=== PATIENT | female | born 1995 | race African-American/Black ===

== ENCOUNTER 2020-01-01 12:28 | Emergency (ER) | payer SELFPAY ==
[2020-01-01 12:36] VITALS: BP 119/77; PULSE 92; RESP 17; TEMP 36.5; O2SAT 96
--- NOTE | 2020-01-01 12:53 | ED.GENADULT ---
HPI - General Adult General Chief complaint: Unspecified Stated complaint: BILATERAL EYE REDNESS, CRAMPS FOR PAST FEW WEEKS Time Seen by Provider: 01/01/20 12:46 History of Present Illness HPI narrative: 24-year-old female presents to emergency department for multiple complaints. Patient states she has had bilateral red eyes for the past 3 days. And has never had this in the past before. No feeling of a foreign body. No eye injuries. Patient does not wear contacts, only wears glasses. Patient reports he has is also having lower abdominal pain for the past 2 weeks. She states she had vaginal bleeding 2 nights ago after sex. She denies any urinary symptoms. She does not take anything for the pain so far. No current chest pain or shortness of breath. No fever or chills. Her last menstrual period was at the beginning of the month. Related Data Allergies Allergy/AdvReac Type Severity Reaction Status Date / Time No Known Allergies Allergy Unknown Verified 01/01/20 12:41 Review of Systems Review of Systems: Narrative: CONSTITUTIONAL: Denies fever, chills, or sweats. EYES: Denies visual changes. Reports bilateral eye redness and crusty discharge ENT: Denies rhinorrhea, congestion, sore throat, or otalgia. CARDIOVASCULAR: Denies chest pain, palpitations, or edema. RESPIRATORY: Denies cough or dyspnea. GASTROINTESTINAL: Reports abdominal pain, denies nausea, denies vomiting, and denies diarrhea. GENITOURINARY: Denies dysuria or hematuria. Patient reports vaginal bleeding SKIN: Denies rash or itching. MUSCULOSKELETAL: Denies back pain, joint pain, or myalgia. NEUROLOGIC: Denies headache, numbness, dizziness, or weakness. PSYCHIATRIC: Denies anxiety or depression. All systems reviewed & are unremarkable except as noted in HPI and below (ROS) Exam Narrative: Exam Narrative: GENERAL: Well-appearing, well-nourished, and in no acute distress. HEAD: Normocephalic, atraumatic. EYES: PERRLA and EOMI. Mild bilateral eyes injected. No discharge noted ENT: Nares clear, no rhinorrhea or epistaxis. Mucous membranes moist. NECK: Supple. CHEST: Clear to auscultation. No respiratory distress. HEART: Regular rate and rhythm. No murmur heard. Normal peripheral pulses. : light green vaginal discharge. ABDOMEN: Soft, nontender, nondistended, normal active bowel sounds. EXTREMITIES: Normal range of motion. No edema. SKIN: Warm, dry, no rash. NEURO: No focal deficits. Alert and oriented x3. PSYCH: Normal mood and affect. Course Reevaluation(s) Reevaluation #1: [id number] -reevaluated patient, no new complaints. Will treat for vaginitis with Rocephin, azithromycin, Flagyl. Counseled patient to follow-up with [facility] within 1 to 2 weeks. Return to emergency department if symptoms persist, worsen, or other concerns. Vital Signs Vital signs: Vital Signs Temperature 36.5 C 01/01/20 12:36 Pulse Rate 92 01/01/20 12:36 Respiratory Rate 17 01/01/20 12:36 Blood Pressure 119/77 01/01/20 12:36 Pulse Oximetry 96 01/01/20 12:36 Temperature 36.5 C 01/01/20 12:36 Pulse Rate 76 01/01/20 16:03 Respiratory Rate 17 01/01/20 16:03 Blood Pressure 120/76 01/01/20 16:03 Pulse Oximetry 99 01/01/20 16:03 Medical Decision Making Medical Records Medical records reviewed: Yes I reviewed the patient's medical records. Vital Signs Vital Signs: Vital Signs Temperature 36.5 C 01/01/20 12:36 Pulse Rate 92 01/01/20 12:36 Respiratory Rate 17 01/01/20 12:36 Blood Pressure 119/77 01/01/20 12:36 Pulse Oximetry 96 01/01/20 12:36 Temperature 36.5 C 01/01/20 12:36 Pulse Rate 76 01/01/20 16:03 Respiratory Rate 17 01/01/20 16:03 Blood Pressure 120/76 01/01/20 16:03 Pulse Oximetry 99 01/01/20 16:03 Lab Data Lab results reviewed: Yes I reviewed the patient's lab results. Result diagrams: 01/01/20 13:03 01/01/20 13:03 Labs: Lab Results 01/01/20 01/01/20 01/01/20 Range/Un
[2020-01-01] MEDS: ACETAMINOPHEN 325 MG TABLET 650 MG PO (13:00)
[2020-01-01 13:15] LABS: Add Urine Microscopic? YES; Appearance Urine Cloudy (Clear); Bacteria Urine Trace /hpf; Bilirubin Urine Negative (Negative); Blood Urine 2+ (Negative); Color Urine Yellow (Yellow); Glucose Urine UA Negative (Negative); Ketones Urine Negative (Negative); Leukocyte Esterase Ur 3+ LEU/UL (Negative); Mucus Urine Rare /lpf; Nitrate Urine Negative (Negative); Protein Urine Negative (Negative); Specific Grav Ur 1.014 (1.001-1.035); Squamous Epithelial Cell Urine Many /hpf (Few); Urobilinogen Urine Negative mg/dL (<2.0); WBC Urine 0-3 /hpf
[2020-01-01 13:22] LABS: Alanine Aminotransferase 11 U/L (4-35); Albumin Level 4.3 g/dL (3.5-5.1); Alkaline Phosphatase 45 U/L (38-126); Anion Gap 8 mmol/L (8-16); Aspartate Amino Transferase 20 U/L (14-36); Bilirubin,Total 0.5 mg/dL (0.2-1.3); Blood Urea Nitrogen 13 mg/dL (7-17); Carbon Dioxide 25 mmol/L (22-30); Chloride 106 mmol/L (98-107); Estimated CRCL calculation 100 ml/min; Estimated Glomerular Filt Rate > 60; Glucose 87 mg/dL (65-105); Potassium 3.9 mmol/L (3.4-5.0); Sodium 139 mmol/L (137-145)
[2020-01-01 14:37] LABS: Basophils Percent Auto 0.7 % (0.2-1.2); Eosinophils Absolute Auto 0.1 K/mm3 (0-0.3); Hemoglobin 12.9 g/dL (12.0-15.0); Immature Granulocyte Absolute 0.01 K/mm3 (0.00-0.031); Immature Granulocyte Percent A 0.2 % (0-0.5); Lymphocytes Absolute Auto 1.97 K/mm3 (0.9-3.2); Lymphocytes Percent Auto 45.4 % (18.3-44.2); Mean Corpuscular HGB Conc 33.1 g/dl (32-36); Mean Corpuscular Hemoglobin 30.6 pg (26-34); Mean Corpuscular Volume 92.6 fl (80-100); Mean Platelet Volume 9.5 fl (7.4-10.4); Monocytes Absolute Auto 0.4 K/mm3 (0.1-0.6); Monocytes Percent Auto 8.5 % (2.6-8.5); Neutrophils Absolute Auto 1.8 K/mm3 (1.3-6.7); Neutrophils Percent Auto 42.2 % (45.5-73.1); Platelet Count Result 407 k/mm3 (150-375); Red Blood Count 4.21 M/mm3 (4.2-5.4); Red Cell Distribution Width 13.3 % (11.5-14.5); White Blood Count 4.3 K/mm3 (4.5-10.0)
[2020-01-01] MEDS: AZITHROMYCIN 250 MG TABLET 1000 MG PO (15:23)
[2020-01-01] MEDS: LIDOCAINE HCL 1% LOCAL INJ 20 ML VIAL (15:23)
[2020-01-01] MEDS: cefTRIAXone 250 MG VIAL IM (15:23)
[2020-01-01 16:03] VITALS: BP 120/76; PULSE 76; RESP 17; O2SAT 99
== END 2020-01-01 16:05 | disposition home or self-care (01) ==
PROVIDERS: Emergency Provider Emergency Medicine
DX: H57.89 Other specified disorders of eye and adnexa (principal); N76.0 Acute vaginitis
CPT/HCPCS: 36415; 80053; 81001; 81025; 85025; 87070; 87147; 87491; 87591; 87808; 96372; 99284; A9270; J0696

== ENCOUNTER 2020-01-29 12:59 | Emergency (ER) | payer SELFPAY ==
[2020-01-29 13:24] VITALS: BP 142/80; PULSE 72; RESP 18; TEMP 36.7; O2SAT 96
--- NOTE | 2020-01-29 14:22 | PC.NURSE ---
PIERRE Pimentel at bedside for assessment.
--- NOTE | 2020-01-29 14:39 | ED.GENADULT ---
HPI - General Adult General Chief complaint: Unspecified Stated complaint: test Time Seen by Provider: 01/29/20 13:52 Source: patient Mode of arrival: ambulatory Limitations: no limitations History of Present Illness HPI narrative: Patient is a 24-year-old female who presents emergency department for evaluation of possible noting she had a positive test at home a few days ago patient has no complaints or other concerns has not been seen for this does not have a implementation architect or primary care and on arrival is in the room in no distress resting comfortably denying pain Related Data Home Medications Medication Instructions Recorded Confirmed No Home Medications 01/29/20 Allergies Allergy/AdvReac Type Severity Reaction Status Date / Time No Known Allergies Allergy Unknown Verified 01/29/20 14:12 Review of Systems Review of Systems: All systems reviewed & are unremarkable except as noted in HPI and below Exam Narrative: Exam Narrative: GENERAL: Well-appearing, well-nourished, and in no acute distress. HEAD: Normocephalic, atraumatic. EYES: PERRLA and EOMI. ENT: Nares clear, no rhinorrhea or epistaxis. Mucous membranes moist. CHEST: Clear to auscultation. No respiratory distress. No wheezes rales or rhonchi HEART: Regular rate and rhythm. No murmur heard. Normal peripheral pulses. ABDOMEN: Soft, nontender, nondistended EXTREMITIES: Normal range of motion. No edema. SKIN: Warm, dry, no rash. NEURO: No focal deficits. Alert and oriented x3. PSYCH: Normal mood and affect. Course Course Emergency Course: Patient in the room in no distress will be referred to gynecology for further evaluation Vital Signs Vital signs: Vital Signs Temperature 98.1 F 01/29/20 13:24 Pulse Rate 72 01/29/20 13:24 Respiratory Rate 18 01/29/20 13:24 Blood Pressure 142/80 H 01/29/20 13:24 Pulse Oximetry 96 01/29/20 13:24 Temperature 98.1 F 01/29/20 13:24 Pulse Rate 72 01/29/20 13:24 Respiratory Rate 18 01/29/20 13:24 Blood Pressure 142/80 H 01/29/20 13:24 Pulse Oximetry 96 01/29/20 13:24 Medical Decision Making [facility] Narrative Medical decision making narrative: Negative test in the emergency department felt appropriate for outpatient reevaluation Vital Signs Vital Signs: Vital Signs Temperature 98.1 F 01/29/20 13:24 Pulse Rate 72 01/29/20 13:24 Respiratory Rate 18 01/29/20 13:24 Blood Pressure 142/80 H 01/29/20 13:24 Pulse Oximetry 96 01/29/20 13:24 Temperature 98.1 F 01/29/20 13:24 Pulse Rate 72 01/29/20 13:24 Respiratory Rate 18 01/29/20 13:24 Blood Pressure 142/80 H 01/29/20 13:24 Pulse Oximetry 96 01/29/20 13:24 Lab Data Labs: UCG Bedside Result Negative Reference Range: Negative Discharge Plan Discharge Clinical Impression: Concern about unplanned without diagnosis Patient Disposition: Home, Self-Care Condition: Stable Instructions: Antibiotic Form, Safe Sex Practices (ED) Additional Instructions: Follow-up with gynecology in the next 7 days. go to ER for worsening pain, nausea/vomitting, fever/chills, vaginal bleeding/discharge, pelvic pain, chest pain, shortness of breath, blood in stools or urine, etc. or any other concerns. Take any prescribed medications as directed. If you do not have a drug allergy to tylenol or motrin and can tolerate it then take tylenol or motrin as needed for discomfort/pain. Prescriptions: No Action No Home Medications RF: 0 Follow-up/Referrals: PHYSICIAN,KEY ENTRY OPERATOR [Primary Care Provider] - Radha Jarvis MD [Physician] -
== END 2020-01-29 14:49 | disposition home or self-care (01) ==
PROVIDERS: Emergency Provider Emergency Medicine
DX: Z32.02 Encounter for pregnancy test, result negative (principal)
CPT/HCPCS: 81025; 99283

== ENCOUNTER 2020-06-10 11:32 | Observation (INO) | payer MEDICAID, SELFPAY ==
--- NOTE | ~2020-06-10 | US_ITS ---
EXAMINATION: US OB limited EXAM DATE: 06/10/2020 12:22 INDICATION: For well-being. Check placenta. Abdominal pain. 3rd trimester. TECHNIQUE: Pelvic obstetrical transabdominal sonogram was performed by a technologist. There are mu ltiple grayscale and Doppler images available for interpretation. There are no earlier studies of th is gestation for comparison. FINDINGS: There is a single fetus identified in breech presentation with a heart rate of 141 beats pe r minute. The placenta is located in the anterior position. There is no sonographic evidence of retr oplacental hemorrhage identified. There is subjectively expected amount of amniotic fluid. IMPRESSION: 1. Single fetus in breech presentation with heart rate 141 beats per minute. 2. Unremarkable anteriorly located placenta. Reviewed, dictated and finalized at location B. ICATION COORDINATOR
--- NOTE | 2020-06-10 11:27 | PC.NURSE ---
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
--- NOTE | 2020-06-10 11:32 | OBADM ---
This patient, Sylvia Mackay, admitted to the OB room OB Post 112 for observation. Patient/family oriented to hospital policies and general routines including ID bracelet, bed and alarms, visiting hours, pain management, procedures, bathroom and other care routines, personal items, smoking policy, room service/diet, and visiting hours. Patient/Family are encouraged to report perceived risks to care and to ask questions if they do not understand what they are told or what they should do.
--- NOTE | 2020-06-10 11:41 | PC.NURSE ---
FHT doppled in 150's. movement audible.
[2020-06-10 11:58] VITALS: BMI 20.9
[2020-06-10 12:00] VITALS: BP 123/96; PULSE 107; TEMP 36.7
--- NOTE | 2020-06-10 12:30 | PC.NURSE ---
Patient is resting comfortably in bed.
[2020-06-10 12:40] LABS: Add Urine Microscopic? YES; Appearance Urine Clear (Clear); Bacteria Urine Trace /hpf; Bilirubin Urine Negative (Negative); Blood Urine Negative (Negative); Color Urine Straw (Yellow); Glucose Urine UA Negative (Negative); Ketones Urine Negative (Negative); Leukocyte Esterase Ur Trace LEU/UL (Negative); Mucus Urine Rare /lpf; Nitrate Urine Negative (Negative); Protein Urine Negative (Negative); RBC Urine 0-2 /hpf (0-2); Specific Grav Ur 1.012 (1.001-1.035); Squamous Epithelial Cell Urine Many /hpf (Few); Urobilinogen Urine Negative mg/dL (<2.0); WBC Urine 0-3 /hpf
--- NOTE | 2020-06-10 12:49 | PC.NURSE ---
Notified Dr. Amos of results of ultrasound and UA. Discharge orders received.
--- NOTE | 2020-06-10 13:05 | PC.NURSE ---
Discharge instructions reviewed with patient. labor precautions reviewed. Patient educated on support belt and use of tylenol during for pain management. Patient states understanding of discharge instructions. Patient instructed to call OB office to set up appointment for care.
--- NOTE | 2020-06-11 09:00 | P.PNOB_ITS ---
OB - Triage/Final Diagnosis Visit Information Comments/Additional reasons for admission: I have assessed the risk for this patient, Sylvia Mackay, and determined that she would benefit from observation care. Evaluation Laboratory results: Laboratory Tests 06/10/20 12:14 Urine Color Straw Urine Appearance Clear Urine pH 8.0 Ur Specific [place] 1.012 Urine Protein Negative Urine Glucose (UA) Negative Urine Ketones Negative Ur Blood (Man) Negative Urine Nitrate Negative Urine Bilirubin Negative Urine Urobilinogen Negative Leukocyte Esterase Rfl Trace H Urine RBC 0-2 Urine WBC 0-3 Ur Squamous Epith Cells Many H Urine Bacteria Trace Urine Mucus Rare Vital signs: Vital Signs - 24 hr 06/10/20 12:00 Temperature 36.7 C Pulse Rate 107 H Blood Pressure 123/96 H Final Diagnosis (1) Abdominal pain affecting : Code(s): O26.899 - Other specified related conditions, unspecified trimester; R10.9 - Unspecified abdominal pain Status: Acute
== END 2020-06-10 13:22 | disposition home or self-care (01) ==
PROVIDERS: Admitting Provider Obstetrics & Gynecology; Visit Provider Obstetrics & Gynecology
DX: O26.892 Other specified pregnancy related conditions, second trimester (principal); R10.9 Unspecified abdominal pain; Z3A.21 21 weeks gestation of pregnancy
CPT/HCPCS: 76815; 81001; G0378; G0379

== ENCOUNTER 2020-09-08 10:18 | Observation (INO) | payer OTHER, SELFPAY ==
[2020-09-08 10:23] VITALS: BP 118/78; PULSE 94; RESP 18; TEMP 36.8; O2SAT 100
--- NOTE | 2020-09-08 10:58 | ED.NAVMDI ---
HPI - Nausea/Vomiting/Diarrhea General Chief complaint: Nausea/Vomiting/Diarrhea Stated complaint: vomiting blood, 35 weeks preg Time Seen by Provider: 09/08/20 10:57 Source: RN notes reviewed History of Present Illness HPI Narrative: Patient presents to emergency department from home for emesis. Patient is presently [address] Blanco denies complications with the . States that this morning she had 2 episodes of emesis 1 at 6 AM and 1 at 9 AM that were dark red in color states she is had no emesis since then denies any current nausea she notes some mild burning in the epigastric region but denies any other abdominal pain denies any contractions or vaginal bleeding she denies any fevers or chills Related Data Home Medications Medication Instructions Recorded Confirmed vit no.[id number] 1 tablet PO DAILY 08/26/20 08/26/20 [Classic ] Allergies Allergy/AdvReac Type Severity Reaction Status Date / Time No Known Allergies Allergy Unknown Verified 01/29/20 14:12 Review of Systems Review of Systems: Narrative: Gen.: Denies fevers or chills ENT: Denies congestion Respiratory: Denies shortness of breath or cough CV: Denies chest pain or palpitations GI: See HPI reports Musculoskeletal: Denies back pain or muscle pain Neuro: Denies numbness, tingling, weakness or focal weakness Skin: Denies rash Except as documented, all other systems reviewed and negative [facility] Past Medical History Medical History (Updated 09/08/20 @ 12:55 by Pramod Woods DO) Patient denies significant medical history Social History Social History (Updated 09/08/20 @ 11:18 by Pramod Woods DO) Smoking status: Never smoker Exam Narrative: Exam Narrative: APPEARANCE: No acute distress, nontoxic, resting in bed HEENT: Normocephalic, atraumatic, OMM RESPIRATORY: No respiratory distress, clear to auscultation bilaterally with no rhonchi wheezing or rales CARDIOVASCULAR: RRR s murmur ABDOMINAL: Gravid uterus palpated nontender to palpation no rebound or guarding Rectal: No hemorrhoids or fissures no active bleeding small amount of soft brown stool that is Hemoccult negative MUSCULOSKELETAl: Moves all extremities. No clubbing, cyanosis or edema. NEURO: Awake and alert. Following commands, speech normal, no focal deficits SKIN:: Warm, dry. Normal Color PSYCHIATRIC: Normal affect/mood Course Course Emergency Course: Discussed with Dr. Conrad presentation work-up at this time recommends admission for observation with serial H&H's with patient started on Protonix IV push x1 Discussed with Dr. Amos today for CHROME TANNER presentation work-up agrees with admission to his service agrees with plan for Protonix Discussed with patient and family results of workup and diagnosis. Discussed need for admission. Patient and family understand and agree to current treatment plan Vital Signs Vital signs: Vital Signs Temperature 98.3 F 09/08/20 10:23 Pulse Rate 94 09/08/20 10:23 Respiratory Rate 18 09/08/20 10:23 Blood Pressure 118/78 09/08/20 10:23 Pulse Oximetry 100 09/08/20 10:23 Temperature 98.3 F 09/08/20 10:23 Pulse Rate 68 09/08/20 12:31 Respiratory Rate 18 09/08/20 12:31 Blood Pressure 122/78 09/08/20 12:31 Pulse Oximetry 99 09/08/20 12:31 MDM - Nausea/Vomiting/Diarrhea Lab Data Result diagrams: 09/08/20 11:42 09/08/20 11:42 Labs: Lab Results 09/08/20 09/08/20 09/08/20 Range/Units 11:42 11:42 11:42 WBC 11.0 H (4.5-10.0) K/mm3 RBC 3.52 L (4.2-5.4) M/mm3 Hgb 9.7 L D (12.0-15.0) g/dL Hct 30.2 L (37.0-47.0) % MCV 85.8 (80-100) fl MCH 27.6 (26-34) pg MCHC 32.1 (32-36) g/dl RDW 13.8 (11.5-14.5) % Plt Count 497 H (150-375) k/mm3 MPV 9.1 (7.4-10.4) fl Immature Gran % (Auto) 1.3 H (0-0.5) % Neut % (Auto) 72.0 (45.5-73.1) % Lymph % (Auto) 15.6 L
[2020-09-08] MEDS: SODIUM CHLORIDE 0.9% IV 1,000 ML 999 ML IV CONT (11:48)
[2020-09-08 11:50] LABS: Basophils Percent Auto 0.3 % (0.2-1.2); Eosinophils Absolute Auto 0.2 K/mm3 (0-0.3); Eosinophils Percent Auto 1.5 % (0-4.4); Hematocrit 30.2 % (37.0-47.0); Hemoglobin 9.7 g/dL (12.0-15.0); Immature Granulocyte Absolute 0.14 K/mm3 (0.00-0.031); Immature Granulocyte Percent A 1.3 % (0-0.5); Lymphocytes Absolute Auto 1.71 K/mm3 (0.9-3.2); Lymphocytes Percent Auto 15.6 % (18.3-44.2); Mean Corpuscular HGB Conc 32.1 g/dl (32-36); Mean Corpuscular Hemoglobin 27.6 pg (26-34); Mean Corpuscular Volume 85.8 fl (80-100); Mean Platelet Volume 9.1 fl (7.4-10.4); Monocytes Percent Auto 9.3 % (2.6-8.5); Neutrophils Absolute Auto 7.9 K/mm3 (1.3-6.7); Platelet Count Result 497 k/mm3 (150-375); Red Blood Count 3.52 M/mm3 (4.2-5.4); Red Cell Distribution Width 13.8 % (11.5-14.5)
[2020-09-08 12:01] LABS: Alanine Aminotransferase 12 U/L (4-35); Albumin Level 3.5 g/dL (3.5-5.1); Alkaline Phosphatase 138 U/L (38-126); Anion Gap 4 mmol/L (8-16); Aspartate Amino Transferase 24 U/L (14-36); Bilirubin,Total 0.2 mg/dL (0.2-1.3); Blood Urea Nitrogen 5 mg/dL (7-17); Calcium 9.7 mg/dL (8.4-10.2); Carbon Dioxide 26 mmol/L (22-30); Chloride 106 mmol/L (98-107); Estimated CRCL calculation 135 ml/min; Estimated Glomerular Filt Rate > 60; Glucose 97 mg/dL (65-105); Lipase 30 U/L (23-300); Potassium 3.7 mmol/L (3.4-5.0); Sodium 136 mmol/L (137-145)
[2020-09-08 12:03] LABS: Add Urine Microscopic? YES; Appearance Urine Cloudy (Clear); Bacteria Urine 1+ /hpf; Bilirubin Urine Negative (Negative); Color Urine Yellow (Yellow); Glucose Urine UA Negative (Negative); Ketones Urine Negative (Negative); Leukocyte Esterase Ur 3+ LEU/UL (Negative); Mucus Urine Rare /lpf; Nitrate Urine Negative (Negative); Protein Urine 1+ mg/dL (Negative); RBC Urine 0-2 /hpf (0-2); Specific Grav Ur 1.013 (1.001-1.035); Squamous Epithelial Cell Urine Many /hpf (Few); Urobilinogen Urine Negative mg/dL (<2.0); WBC Urine 31-50 /hpf
[2020-09-08 12:04] LABS: Blood Urine Negative (Negative)
[2020-09-08 12:07] LABS: Prothrombin Time 13.5 Seconds (11.1-14.7)
[2020-09-08 12:08] LABS: Partial Thromboplastin Time 28.4 SECONDS (22.3-36.8)
[2020-09-08 12:31] VITALS: BP 122/78; PULSE 68; RESP 18; O2SAT 99
[2020-09-08] MEDS: PANTOPRAZOLE SODIUM IV 40 MG VIAL IV PUSH (13:14)
[2020-09-08] MEDS: SODIUM CHLORIDE 0.9% IV 1,000 ML 125 ML IV CONT (13:58)
[2020-09-08 13:59] VITALS: BMI 27.0
--- NOTE | 2020-09-08 14:00 | OBADM ---
This patient, Sylvia Mackay, admitted to the OB room OB Post 113 for observation. Patient/family oriented to hospital policies and general routines including ID bracelet, bed and alarms, visiting hours, pain management, procedures, bathroom and other care routines, personal items, smoking policy, room service/diet, and visiting hours. Patient/Family are encouraged to report perceived risks to care and to ask questions if they do not understand what they are told or what they should do.
[2020-09-08 14:57] VITALS: BP 112/57; PULSE 80
[2020-09-08 16:13] LABS: Hematocrit 27.8 % (37.0-47.0); Hemoglobin 8.9 g/dL (12.0-15.0)
--- NOTE | 2020-09-08 16:26 | WPDGICN ---
Assessment and Plan Assessment and plan (1) Hematemesis: Code(s): K92.0 - Hematemesis Status: Acute Assessment and Plan: no more episodes since admission, could be esophagitis, tear, ulcer continue to monitor clinically, also trend h/h she is hemodynamically stable on iv protonix will favor conservative treatment unless more obvious bleeding but holding off EGD evaluation at least for now, CL diet (2) GI bleed: Code(s): K92.2 - Gastrointestinal hemorrhage, unspecified Status: Acute (3) : Code(s): Z34.90 - Encounter for supervision of normal , unspecified, unspecified trimester Status: Acute Assessment and Plan: 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 She says that last month of her she has been having more reflux than usual, normally is not taking anything. Denies melena or previous GIB, never had scopes. Only medication is prenatals. She denies any complication with her , denies any contractions or vaginal bleeding. She was admitted to monitor. Hb 12 few months ago, now 9.7 Review of Systems Review of Systems: All systems reviewed & are unremarkable except as noted in HPI and below PMFSH Past Medical History Medical History (Updated 09/08/20 @ 17:33 by Po Overton MD) Acute blood loss anemia Hematemesis Patient denies significant medical history Social History Social History (Updated 09/08/20 @ 11:18 by Pramod Woods DO) Smoking status: Never smoker Meds Home Medications and Allergies Home Medications Medication Instructions Recorded Confirmed Type vit no.[id number] 1 tablet PO DAILY 08/26/20 08/26/20 History [Classic ] Allergies Allergy/AdvReac Type Severity Reaction Status Date / Time No Known Allergies Allergy Unknown Verified 01/29/20 14:12 Vital Signs Vital Signs - 24 hr 09/08/20 10:23 09/08/20 12:31 09/08/20 14:57 Temperature 98.3 F Pulse Rate 94 68 80 Respiratory Rate 18 18 Blood Pressure 118/78 122/78 112/57 L Pulse Oximetry 100 99 Exam Const: General: comfortable and no acute distress HENMT: General nose exam: Normal nares present Eyes: General: appearance normal, both eyes and all related structures Neck: Neck: no JVD Resp: Auscultation: clear to auscultation bilaterally Cardio: Rate: regular rate Rhythm: regular rhythm GI: GI Palp: Yes Soft to palpation and No Tenderness to palpation present (GI) Auscultation: normal bowel sounds Other: Skin: General skin exam: normal color Neuro: General: gait normal Speech: normal speech Motor exam (neuro): Normal motor muscle tone present throughout Extrem: General: normal to inspection Psych: Mental Status: mental status grossly normal Results Labs CBC & Chem 7: 09/08/20 16:06 09/08/20 11:42 Labs: Short CBC 09/08/20 09/08/20 Range/Units 11:42 16:06 WBC 11.0 H (4.5-10.0) K/mm3 Hgb 9.7 L D 8.9 L (12.0-15.0) g/dL Hct 30.2 L 27.8 L (37.0-47.0) % Plt Count 497 H (150-375) k/mm3 BMP 09/08/20 11:42 Sodium 136 L Potassium 3.7 Chloride 106 Carbon Dioxide 26 BUN 5 L D Creatinine 0.50 L Glucose 97 Calcium 9.7 Liver Function 09/08/20 Range/Units 11:42 Total Bilirubin 0.2 (0.2-1.3) mg/dL AST 24 (14-36) U/L ALT 12 (4-35) U/L Alkaline Phosphatase 138 H (38-126) U/L Albumin 3.
--- NOTE | 2020-09-08 16:35 | PC.NURSE ---
Pt states she has been having increase in heartburn over the last month. States she has not been having excessive vomiting, some vomiting in the mornings but not every morning. States she has had to sleep sitting propped up with the heartburn, states she has not been taking anything at home.
[2020-09-08 22:17] VITALS: BP 121/70; PULSE 79
[2020-09-08 22:30] VITALS: BP 123/79; PULSE 87
[2020-09-08 22:35] LABS: Hematocrit 29.3 % (37.0-47.0); Hemoglobin 9.4 g/dL (12.0-15.0)
[2020-09-08 22:45] VITALS: BP 122/66; PULSE 87; TEMP 37.1
--- NOTE | 2020-09-09 01:40 | PC.NURSE ---
0020 - pt spilt water pitcher in bed; bed sheets changed, water refilled. no complaints or needs at this time. Per ILDA Cano
[2020-09-09 04:31] VITALS: BP 105/48; PULSE 89; RESP 18; TEMP 36.8
[2020-09-09 04:39] LABS: Basophils Percent Auto 0.3 % (0.2-1.2); Eosinophils Absolute Auto 0.1 K/mm3 (0-0.3); Eosinophils Percent Auto 1.1 % (0-4.4); Hematocrit 27.2 % (37.0-47.0); Hemoglobin 8.8 g/dL (12.0-15.0); Immature Granulocyte Absolute 0.09 K/mm3 (0.00-0.031); Immature Granulocyte Percent A 0.9 % (0-0.5); Lymphocytes Absolute Auto 1.76 K/mm3 (0.9-3.2); Lymphocytes Percent Auto 18.3 % (18.3-44.2); Mean Corpuscular HGB Conc 32.4 g/dl (32-36); Mean Corpuscular Hemoglobin 27.1 pg (26-34); Mean Corpuscular Volume 83.7 fl (80-100); Mean Platelet Volume 8.8 fl (7.4-10.4); Monocytes Absolute Auto 0.9 K/mm3 (0.1-0.6); Monocytes Percent Auto 9.7 % (2.6-8.5); Neutrophils Absolute Auto 6.7 K/mm3 (1.3-6.7); Neutrophils Percent Auto 69.7 % (45.5-73.1); Platelet Count Result 436 k/mm3 (150-375); Red Blood Count 3.25 M/mm3 (4.2-5.4); Red Cell Distribution Width 13.7 % (11.5-14.5); White Blood Count 9.6 K/mm3 (4.5-10.0)
[2020-09-09 04:57] LABS: Alanine Aminotransferase 11 U/L (4-35); Albumin Level 3.1 g/dL (3.5-5.1); Alkaline Phosphatase 130 U/L (38-126); Anion Gap 6 mmol/L (8-16); Aspartate Amino Transferase 21 U/L (14-36); Bilirubin,Total 0.3 mg/dL (0.2-1.3); Blood Urea Nitrogen 3 mg/dL (7-17); Calcium 9.4 mg/dL (8.4-10.2); Carbon Dioxide 23 mmol/L (22-30); Chloride 106 mmol/L (98-107); Estimated CRCL calculation 135 ml/min; Estimated Glomerular Filt Rate > 60; Glucose 67 mg/dL (65-105); Sodium 135 mmol/L (137-145)
--- NOTE | 2020-09-09 07:22 | PM.IMHP ---
H&P: HPI History of Present Illness Date/Time: 09/09/20 07:22 25yo at 35w 5d (CHRISS 10/09/20) presented to the ED with reports of blood in her vomit twice yesterday morning. SHe says it was more than just blood tinged, and that she saw that it was dark red blood. She states that this morning she is feeling fine and has not had any vomiting since being in the hospital. No BMs since being in hospital but denies blood in her stool at home. She does state she is having some acid reflux. She reports good movement. No contractions or leaking of fluid. Denies abdominal pain. Chief Complaint: throwing up blood Review of Systems Constitutional: Constitutional: Reports no additional constitutional complaints Cardiovascular: Cardiovascular: Reports no additional cardiovascular complaints Respiratory: Respiratory: Reports no additional respiratory complaints Gastrointestinal: Gastrointestinal: Reports heartburn and Reports hematemesis Genitourinary: Genitourinary: Reports no additional female genitourinary complaints Musculoskeletal: Musculoskeletal: Reports no additional musculoskeletal complaints Integumentary/Breasts: Skin/Breast: Reports system reviewed and no additional complaints, except as docu Neurologic: Reports system reviewed and no additional complaints, except as documented Psychiatric: Psychiatric: Reports no additional psychiatric complaints Endocrine: Endocrine: Reports no additional endocrine complaints Hematologic/Lymphatic: Hematologic/Lymphatic: Reports no additional hematologic/lymphatic complaints Allergic/Immunologic: Allergic/Immunologic: Reports no additional allergic/immunologic complaints [facility] Past Medical History Medical History Acute blood loss anemia Hematemesis Patient denies significant medical history Social History Social History Smoking status: Never smoker Meds Home Medications and Allergies Home Medications Medication Instructions Recorded Confirmed Type vit no.[id number] 1 tablet PO DAILY 08/26/20 08/26/20 History [Classic ] Allergies Allergy/AdvReac Type Severity Reaction Status Date / Time No Known Allergies Allergy Unknown Verified 01/29/20 14:12 Vital Signs Vital Signs - 24 hr 09/08/20 10:23 09/08/20 12:31 09/08/20 14:57 Temperature 36.8 C Pulse Rate 94 68 80 Respiratory Rate 18 18 Blood Pressure 118/78 122/78 112/57 L Pulse Oximetry 100 99 09/08/20 22:17 09/08/20 22:30 09/08/20 22:45 Temperature 37.1 C Pulse Rate 79 87 87 Respiratory Rate Blood Pressure 121/70 123/79 122/66 Pulse Oximetry 09/09/20 04:31 Temperature 36.8 C Pulse Rate 89 Respiratory Rate 18 Blood Pressure 105/48 L Pulse Oximetry Exam Const: General: cooperative, healthy appearing and comfortable; No no acute distress Resp: Effort & Inspection: normal respiratory effort, able to speak in complete sentences, normal respiratory pattern, no audible wheezes and no cough Cardio: Rate: regular rate GI: GI Palp: No abdominal tenderness, Yes Soft to palpation, No Firmness to palpation present (GI), No Tenderness to palpation present (GI), No Guarding due to palpation present (GI) and No Rigid due to palpation Other: Gravid uterus Neuro: General: oriented to person, oriented to place, oriented to time and patient oriented x3 Psych: Appearance: grossly normal Mental Status: mental status grossly normal Speech and movement: Normal speech and movement present Affect: normal affect Attitude: cooperative Thought process: Normal thought process present Thought content: Yes Normal thought content present Insight: Good insight present (Psych) Judgement: Good judgement present (Psych) H&P: Results Labs Labs: Short CBC 09/08/20 09/08/20 09/08/20 Range/Units 11:42 16:06 22:15 WBC 11.0 H (4.5-10.0) K/mm3 Hgb 9.7 L D 8
[2020-09-09] MEDS: PANTOPRAZOLE SODIUM IV 40 MG VIAL IV PUSH (09:41)
[2020-09-09 09:49] VITALS: BP 114/64; PULSE 91
[2020-09-09 10:15] VITALS: BP 114/64; PULSE 91
--- NOTE | 2020-09-09 11:00 | WPDGIPROGNO ---
Progress Note: A&P Assessment and Plan (1) Hematemesis: Code(s): K92.0 - Hematemesis Status: Acute Assessment and Plan: resolved, she had gerd symptoms hb low but stable and no more signs of bleeding she can go home with ppi daily then she can follow up in office after delivery, if bleeding again then will need to come back she is asymptomatic (2) Anemia affecting in third trimester: Code(s): O99.013 - Anemia complicating , third trimester Status: Acute (3) UTI (urinary tract infection): Code(s): N39.0 - Urinary tract infection, site not specified Status: Acute Assessment and Plan: by primary (4) : Code(s): Z34.90 - Encounter for supervision of normal , unspecified, unspecified trimester Status: Acute Subjective Date/time seen: 09/09/20 11:00 Interval history: doing well, no more reflux symptom, she had normal BM Review of Systems Review of Systems: All systems reviewed & are unremarkable except as noted in HPI and below Exam Const: General: comfortable and no acute distress HENMT: General nose exam: Normal nares present Eyes: General: appearance normal, both eyes and all related structures Neck: Neck: no JVD Resp: Auscultation: clear to auscultation bilaterally Cardio: Rate: regular rate Rhythm: regular rhythm GI: GI Palp: Yes Soft to palpation and No Tenderness to palpation present (GI) Auscultation: normal bowel sounds Other: Skin: General skin exam: normal color Neuro: General: gait normal Speech: normal speech Motor exam (neuro): Normal motor muscle tone present throughout Extrem: General: normal to inspection Psych: Mental Status: mental status grossly normal Objective Data Vital Signs Vital Signs: Vital Signs - 24 hr 09/08/20 22:17 09/08/20 22:30 09/08/20 22:45 Temperature 98.8 F Pulse Rate 79 87 87 Respiratory Rate Blood Pressure 121/70 123/79 122/66 Blood Pressure [Left Arm] 09/09/20 04:31 09/09/20 09:49 09/09/20 10:15 Temperature 98.3 F Pulse Rate 89 91 91 Respiratory Rate 18 Blood Pressure 105/48 L 114/64 Blood Pressure [Left Arm] 114/64 Intake/Output Intake/Output: Intake & Output 05/07/2509/07/20 09/08/20 09/09/20 23:59 23:59 23:59 23:59 Intake Total 2450 Output Total 1800 900 Balance 650 -900 Labs Labs: Laboratory Results - last 24 hr 09/08/20 09/08/20 09/09/20 16:06 22:15 04:29 WBC 9.6 RBC 3.25 L Hgb 8.9 L 9.4 L 8.8 L Hct 27.8 L 29.3 L 27.2 L MCV 83.7 MCH 27.1 MCHC 32.4 RDW 13.7 Plt Count 436 H MPV 8.8 Immature Gran % (Auto) 0.9 H Neut % (Auto) 69.7 Lymph % (Auto) 18.3 [place] % (Auto) 9.7 H Eos % (Auto) 1.1 Baso % (Auto) 0.3 Lymph # (Auto) 1.76 [place] # (Auto) 0.9 H Eos # (Auto) 0.1 Baso # (Auto) 0.0 Abs Immat Gran (auto) 0.09 H Absolute Neuts (auto) 6.7 Absolute Nucleated RBC 0.0 Nucleated RBC % 0.0 Sodium Potassium Chloride Carbon Dioxide Anion Gap BUN Creatinine Estim Creat Clear Calc Estimated GFR Glucose Calcium Total Bilirubin AST ALT Alkaline Phosphatase Total Protein Albumin 09/09/20 04:29 WBC RBC Hgb Hct MCV MCH MCHC RDW Plt Count MPV Immature Gran % (Auto) Neut % (Auto) Lymph % (Auto) [place] % (Auto) Eos % (Auto) Baso % (Auto) Lymph # (Auto) [place] # (Auto) Eos # (Auto) Baso # (Auto) Abs Immat Gran (auto) Absolute Neuts (auto) Absolute Nucleated RBC Nucleated RBC % Sodium 135 L Potassium 4.0 Chloride 106 Carbon Dioxide 23 Anion Gap 6 L BUN 3 L Creatinine 0.50 L Estim Creat Clear Calc 135 Estimated GFR > 60 Glucose 67 Calcium 9.4 Total Bilirubin 0.3 AST 21 ALT 11 Alkaline Phosphatase 130 H Total Protein 7.0 Albumin 3.1 L
--- NOTE | 2020-09-09 12:15 | PC.NURSE ---
Dr. Conrad at bedside discussing plan of care with pt. New orders received to discharge pt home with a prescription to continue Protonix.
--- NOTE | 2020-09-09 18:43 | PM.DS ---
DS: Admitting Diagnosis Admitting Diagnosis Admitting Diagnosis: Hematemesis DS: Discharge Diagnosis Discharge Diagnosis (1) Anemia affecting in third trimester: Code(s): O99.013 - Anemia complicating , third trimester Status: Acute (2) Hematemesis: Code(s): K92.0 - Hematemesis Status: Acute (3) : Code(s): Z34.90 - Encounter for supervision of normal , unspecified, unspecified trimester Status: Acute DS: Summary Hospital Course Reason for hospitalization: Hematemesis Hospital Course: Patient admitted for observation via the ER when she presented with hematemesis x2 at home. GI consult was obtained and serial H/H ordered. Patient did not have any vomiting or any other signs of BI bleed during her stay. NSTs for assessment was also reassuring. Patient was stable for discharge with outpatient follow up. Status at Discharge Functional status at discharge: independent ambulation Overall status at discharge: patient is progressing back to baseline Time Spent with Patient Time attestation: Total time spent providing and/or coordinating discharge services: Time spent: Less than 30 minutes Exam Const: General: cooperative, healthy appearing and comfortable; No no acute distress Orientation/consciousness: oriented to person, oriented to place, oriented to time and patient oriented x3 Resp: Effort & Inspection: normal respiratory effort, able to speak in complete sentences, normal respiratory pattern, no audible wheezes and no cough Cardio: Rate: regular rate GI: Other: Gravid uterus Neuro: General: oriented to person, oriented to place, oriented to time and patient oriented x3 Psych: Appearance: grossly normal Mental Status: mental status grossly normal Speech and movement: Normal speech and movement present Affect: normal affect Attitude: cooperative Thought process: Normal thought process present Insight: Good insight present (Psych) Judgement: Good judgement present (Psych) DS: Data Data Completed and Pending Labs on day of discharge: Labs from last 24 hours 09/09/20 09/09/20 09/08/20 04:29 04:29 22:15 WBC 9.6 RBC 3.25 L Hgb 8.8 L 9.4 L Hct 27.2 L 29.3 L MCV 83.7 MCH 27.1 MCHC 32.4 RDW 13.7 Plt Count 436 H MPV 8.8 Immature Gran % (Auto) 0.9 H Neut % (Auto) 69.7 Lymph % (Auto) 18.3 [place] % (Auto) 9.7 H Eos % (Auto) 1.1 Baso % (Auto) 0.3 Lymph # (Auto) 1.76 [place] # (Auto) 0.9 H Eos # (Auto) 0.1 Baso # (Auto) 0.0 Abs Immat Gran (auto) 0.09 H Absolute Neuts (auto) 6.7 Absolute Nucleated RBC 0.0 Nucleated RBC % 0.0 Sodium 135 L Potassium 4.0 Chloride 106 Carbon Dioxide 23 Anion Gap 6 L BUN 3 L Creatinine 0.50 L Estim Creat Clear Calc 135 Estimated GFR > 60 Glucose 67 Calcium 9.4 Total Bilirubin 0.3 AST 21 ALT 11 Alkaline Phosphatase 130 H Total Protein 7.0 Albumin 3.1 L Discharge Plan Discharge Attending physician on discharge: Abdon Amos Consulting providers: Carlyle Andrews ; Po Overotn Discharging Clinician: Abdon Amos Anticipated Discharge Date/Time: 09/09/20 13:10 Patient Disposition: Home, Self-Care Activity: as tolerated Diet: as tolerated Discharge Instructions: OB ANTEPARTUM DISCHARGE INSTRUCTIONS This information is given to help you properly care for yourself at home after your discharge from the hospital. Follow these instructions until your doctor tells you otherwise. DIET: Eat Three Well Balanced Meals per Day Small Frequent Feedings Drink at Least Eight 8-Ounce Glasses of Caffeine-Free Beverages Daily Advance As Tolerated Additional Diet Instructions: ACTIVITY: As Tolerated Additional Activity Instructions: RETURN TO LABOR AND DELIVERY IF YOU HAVE: Any Change In Baby's Normal Movement Pattern Any Leakage of Fluid Mor
== END 2020-09-09 14:12 | disposition home or self-care (01) ==
LOC: ANHED 12:55 → ANHOBPP 13:36
PROVIDERS: Admitting Provider Obstetrics & Gynecology; Emergency Provider Emergency Medicine; Visit Provider Obstetrics & Gynecology
DX: O21.8 Other vomiting complicating pregnancy (principal); O99.013 Anemia complicating pregnancy, third trimester; D64.9 Anemia, unspecified; Z3A.35 35 weeks gestation of pregnancy; K92.0 Hematemesis; K21.9 Gastro-esophageal reflux disease without esophagitis
CPT/HCPCS: 36415; 59025; 80053; 81001; 83690; 85014; 85018; 85025; 85610; 85730; 86850; 86900; 86901; 87086; 96361; 96365; 96374; 96375; 99285; C9113; G0378; G0379; J0696; J7030

== ENCOUNTER 2020-09-30 14:40 | Outpatient (RCR) | payer OTHER, SELFPAY ==
[2020-08-12 11:19] VITALS: BP 122/75; PULSE 82
[2020-08-16 13:15] VITALS: BP 115/64; PULSE 94
[2020-08-19 13:07] VITALS: BP 115/64; BP 122/75; PULSE 94
[2020-08-23 13:23] VITALS: PULSE 84
[2020-08-26 13:05] VITALS: BP 118/66; PULSE 84
--- NOTE | 2020-08-26 13:25 | PC.NURSE ---
Dr. Blanco on unit and informed of uterine irritability that was on NST tracing. Pt denied feeling any abdominal pain, tightening, cramping, pressure, or back pain. OK to discharge to home. labor handout given.
[2020-08-30 13:24] VITALS: BP 119/71; PULSE 93
[2020-09-02 13:21] VITALS: BP 119/71; PULSE 88
[2020-09-06 13:12] VITALS: BP 119/71; BP 124/77; PULSE 94
[2020-09-30 15:10] VITALS: BP 128/77; PULSE 99
== END 2020-10-07 08:09 | disposition home or self-care (01) ==
LOC: ANHOBOP 14:40
PROVIDERS: Visit Provider Obstetrics & Gynecology
DX: O43.893 Other placental disorders, third trimester (principal); Z3A.30 30 weeks gestation of pregnancy; Z3A.31 31 weeks gestation of pregnancy; Z3A.32 32 weeks gestation of pregnancy; Z3A.33 33 weeks gestation of pregnancy; Z3A.34 34 weeks gestation of pregnancy; Z3A.37 37 weeks gestation of pregnancy
CPT/HCPCS: 59025

== ENCOUNTER 2020-10-06 06:31 | Inpatient (IN) | payer OTHER, SELFPAY ==
[2020-10-06] VITALS (115 sets, daily range): BP systolic 103–152; BP diastolic 48–138; PULSE 25–261; RESP 16; TEMP 36.5–37.2; O2SAT 61–100; BMI 26.7
--- NOTE | 2020-10-06 06:45 | WPDANESEPPF ---
Anes - Initial Pre Proc Eval Procedure: labor epidural Date/Time: 10/06/20 06:45 Surgeon: Vikram Blanco MD Pre Op Diagnosis: labor pain Pre Op Diagnosis: IOL Patient Data Age: 25 Gender: F Height: Weight: Allergies Allergy/AdvReac Type Severity Reaction Status Date / Time No Known Allergies Allergy Unknown Verified 01/29/20 14:12 Home Medications Medication Instructions Recorded Confirmed Type Classic 1 tablet PO DAILY 08/26/20 08/26/20 History pantoprazole [Protonix] 40 mg PO QAM #60 tablet 09/09/20 Rx Patient hx anesthesia problems: none Family hx anesthesia problems: none PMFSH Past Medical History Medical History Acute blood loss anemia Hematemesis Patient denies significant medical history Social History Social History Smoking status: Never smoker Anes - Eval Final PreProcedure Day of Procedure 10/06/20 06:45 Patient weight: overweight ASA classification: II Anesthesia type and monitoring: regional epidural Informed Consent: The patient's anesthetic plan and its attendant risks and benefits were discussed with the patient/family/POA. Questions were solicited and answers provided to the satisfaction of the patient/family/POA.
--- NOTE | 2020-10-06 07:35 | LDADM ---
This patient, Sylvia Mackay, was admitted to Labor/Delivery/Recovery 104 on 10/06/20 at 06:31. Plans for labor, pain management and were discussed with patient. Patient/family oriented to hospital policies and general routines including ID bracelet, bed and alarms, visiting hours, pain management, procedures, bathroom and other care routines, personal items, smoking policy, room service/diet and guest tray routines, infant security routines,call light and visiting hours. Patient/Family are encouraged to report perceived risks to care and to ask questions if they do not understand what they are told or what they should do. See OBIX for further documentation.
[2020-10-06 07:39] LABS: Basophils Percent Auto 0.3 % (0.2-1.2); Eosinophils Absolute Auto 0.1 K/mm3 (0-0.3); Eosinophils Percent Auto 1.2 % (0-4.4); Hematocrit 30.8 % (37.0-47.0); Hemoglobin 9.6 g/dL (12.0-15.0); Immature Granulocyte Percent A 1.8 % (0-0.5); Lymphocytes Absolute Auto 1.99 K/mm3 (0.9-3.2); Lymphocytes Percent Auto 18.4 % (18.3-44.2); Mean Corpuscular HGB Conc 31.2 g/dl (32-36); Mean Corpuscular Hemoglobin 24.9 pg (26-34); Mean Corpuscular Volume 79.8 fl (80-100); Mean Platelet Volume 9.5 fl (7.4-10.4); Monocytes Percent Auto 9.3 % (2.6-8.5); Neutrophils Absolute Auto 7.5 K/mm3 (1.3-6.7); Nucleated Red Blood Cells Perc 0.2 % (0.0-0.2); Platelet Count Result 547 k/mm3 (150-375); Red Blood Count 3.86 M/mm3 (4.2-5.4); Red Cell Distribution Width 15.3 % (11.5-14.5); White Blood Count 10.8 K/mm3 (4.5-10.0)
[2020-10-06] MEDS: LACTATED RINGERS 1,000 ML 125 ML IV CONT (08:01)
[2020-10-06] MEDS: OXYTOCIN 30 UNITS/NS 500 ML 30 UNITS/500 ML BAG 6 UNITS IV CONT (08:02)
[2020-10-06 08:13] LABS: HIV 1/2 Ab P24 Ag Result Negative (Negative)
[2020-10-06 08:26] LABS: Hepatitis B Surface Antigen Negative (Negative)
[2020-10-06 12:40] LABS: Rubella IgG Antibody 81.5 IU/ML
--- NOTE | 2020-10-06 17:47 | P.PCNOB_ITS ---
OB - Delivery Note Procedure Route of delivery: Episiotomy description: None Laceration Description: Vaginal - 1st Degree Delivery repair: chromic Specimen: Yes Quantitative Blood Loss (ml): 300 Anesthesia type: Epidural Disposition: floor Narrative: Patient prepped and draped in usual manner for this procedure. Mat ernal expulsive efforts readily delivered vertex in the rest basilar without difficulty. Cord clamped cut placenta delivered spontaneously. Cervix vagina vulva were inspected of 1st degree superficial vaginal laceration was noted which was readily rendered hemostatic using a [id number] 0 chromic suture. There is no significant bleeding at this point seizure was considered terminated with immediate postop condition of mother and baby both excellent. [place] Baby Weeks of gestation at delivery: 39 Infant gender: Male Weight (pounds): 6 Weight (ounces): 12 score one minute: 8 score five minutes: 9
--- NOTE | 2020-10-06 17:47 | WPDHPUPDATE1 ---
History and Physical Update Update Date/Time: 10/06/20 17:47 History and Physical has been reviewed, including an updated exam of the patient. There are NO changes in the patient's condition. Risks, benefits, and alternatives have been discussed and questions answered. Patient agrees to proceed with procedure.
--- NOTE | 2020-10-06 17:47 | WPDOBADMIT ---
Obstetrics - Admit Note Admission Note: record reviewed. No pertinent additions to the history and/or any subsequent changes in the physical findings that are not consistent with the expected course of the were found. Additions to the history and/or subsequent changes in the physical findings follow. None.
[2020-10-06] MEDS: OXYTOCIN 30 UNITS/NS 500 ML 30 UNITS/500 ML BAG 125 UNITS IV CONT (18:01)
[2020-10-06 18:23] LABS: Rapid Plasma Reagin Non-Reactive (NonReactive)
[2020-10-06] MEDS: BENZOCAINE 20% AER SPR (*SP) 56 GM CAN 1 SPRAY TOPICAL (19:55)
[2020-10-06] MEDS: WITCH HAZEL 40 PADS 1 PAD TOPICAL (19:55)
[2020-10-07 00:10] VITALS: BP 120/71; PULSE 100; RESP 16; TEMP 36.9; O2SAT 97
[2020-10-07] MEDS: ACETAMINOPHEN 325 MG TABLET 650 MG PO (00:20)
[2020-10-07 05:59] LABS: Hematocrit 28.3 % (37.0-47.0); Hemoglobin 8.8 g/dL (12.0-15.0)
[2020-10-07 06:40] VITALS: BP 123/68; PULSE 78; RESP 16; TEMP 36.7; O2SAT 98
--- NOTE | 2020-10-07 07:27 | WPDANLDPN2 ---
Anes-Prog Note L&D Date/Time: 10/07/20 07:27 Comfortable throughout: labor and delivery Neuraxial method: epidural Epidural/Spinal procedure site: clean & non-tender Neuro status: Neuro function grossly intact. Cardiovascular status: normal Respiratory status: normal Airway patency: baseline Mental status: baseline Post-Op hydration status: normal Vital Signs: Last Vital Signs Temp 36.7 C 10/07/20 06:40 Pulse 78 10/07/20 06:40 Resp 16 10/07/20 06:40 BP 123/68 10/07/20 06:40 Pulse Ox 98 10/07/20 06:40 Pain score (VAS): 05/16 I/O: Intake & Output 10/06/20 10/06/20 10/07/20 15:59 23:59 07:59 Intake Total 1500 Balance 1500 Post-procedural complaints: none Patient feedback: Patient satisfied with anesthetic care.
[2020-10-07 08:10] VITALS: BP 120/70; PULSE 87; RESP 16; TEMP 37.2; O2SAT 96
[2020-10-07] MEDS: POLYSACCHARIDE IRON COMPLEX 150 MG CAPSULE PO (09:27)
[2020-10-07] MEDS: IBUPROFEN 600 MG TABLET PO (09:29)
[2020-10-07] MEDS: MULTIVIT/MIN/PREN/FOL AC/IRON TABLET 1 TAB PO (09:32)
[2020-10-07] MEDS: DOCUSATE SODIUM 100 MG CAPSULE PO (09:33)
[2020-10-07] MEDS: LANOLIN (LANSINOH) 7.5 GM CREAM 1 APPLIC TOPICAL (09:33)
--- NOTE | 2020-10-07 10:56 | P.DS_ITS ---
DS: Admitting Diagnosis Admitting Diagnosis Admitting Diagnosis: OB - DS: Summary OB Procedures : None OB Procedures Intrapartum: Spontaneous Vag Delivery OB Procedures: : None Time Spent with Patient Time attestation: Total time spent providing and/or coordinating discharge services: DS: Data Data Completed and Pending Pending studies at discharge: Pending at discharge 10/06/20 18:28 Surgical [PTH] Routine Labs on day of discharge: Labs from last 24 hours 10/07/20 10/06/20 10/06/20 04:50 06:55 06:55 Hgb 8.8 L Hct 28.3 L RPR Non-reactive Rubella IgG Antibody 81.5 Discharge Plan Discharge Discharging Clinician: Vikram Blanco Patient Disposition: Home, Self-Care Activity: as tolerated Diet: as tolerated Patient Instructions: Antibiotic Form Stand Alone Forms: General Discharge Information Follow-up/Referrals: Vikram Blanco MD [Physician] - 3 Weeks Discharge Medications: New ibuprofen 600 mg Tablet 600 mg PO Q6H PRN (Reason: Cramping) Qty: 30 RF: 0 Continued Classic 28 mg iron- 800 mcg Tablet 1 tablet PO DAILY RF: 0 pantoprazole [Protonix] 40 mg Tablet,Delayed Release (Dr/Ec) 40 mg PO QAM Qty: 60 RF: 0 Date of admission: 10/06/20 06:31 Primary Care Provider: PHYSICIAN,EARLY CHILDHOOD EDUCATION SPECIALIST Admitting Provider: Vikram Blanco Attending physician on admission: Vikram Blanco Condition: Stable
[2020-10-07 12:00] VITALS: BP 132/78; PULSE 103; RESP 16; TEMP 37.1; O2SAT 100
--- NOTE | 2020-10-07 13:50 | PC.NURSE ---
Mother called out for assist with feeding. Mother reports infant has not fed since circumcision. Assured mother infants may be sleepy after. Reviewed infant feeding cues, frequencies, duration of feedings, feeding elimination flow sheet, and signs of adequate intake. Demonstrated stimulation techniques to wake for feeding. Assisted with infant to breast. Reviewed positioning/alignment in cross cradle, holding breast in ?U? hold and guided asymmetrical latch on. Several attempts made was unable to latch. made no effort to attempt or suckle. Advised due to supplement due to time from last feeding. Mother will give 15-20 mls and attempt to breast in three hours or if feeding cues noted. Instructed mother to call out for RN assistance if she is unable to latch for feeding or she has discomfort with nursing. Instructed feeding should be initiated three hours from start of last feeding or if feeding cues are noted before. Mother voiced understanding of information shared.
[2020-10-07 16:40] VITALS: BP 101/61; PULSE 87; RESP 18; TEMP 37.1; O2SAT 96
[2020-10-07 18:50] VITALS: BP 123/78; PULSE 86; RESP 15; TEMP 36.8; O2SAT 99
[2020-10-08] MEDS: IBUPROFEN 600 MG TABLET PO ×2 (05:17→14:17)
[2020-10-08 08:30] VITALS: BP 130/81; PULSE 95; RESP 16; TEMP 37; O2SAT 99
[2020-10-08] MEDS: DOCUSATE SODIUM 100 MG CAPSULE PO (10:35)
[2020-10-08] MEDS: MULTIVIT/MIN/PREN/FOL AC/IRON TABLET 1 TAB PO (10:35)
[2020-10-08] MEDS: POLYSACCHARIDE IRON COMPLEX 150 MG CAPSULE PO (10:37)
--- NOTE | 2020-10-08 19:54 | PC.NURSE ---
1100 Patient was given the opportunity to view the discharge video Mother & Baby Care, The First Two Weeks and to ask questions. Patient declined viewing the video and has been given the mother/baby guide for home reference.
--- NOTE | 2020-10-08 19:55 | PC.NURSE ---
1600 Mother states she has read through her discharge papers; nursed reviewed them with her; FOB was sleeping during this time. Mother signed papers in understanding. Feeding plan was reviewed. Mother has not been pumping as she was encouraged to do. FOB stated he could buy her a pump; mother was also shown how to use the hand pump attachment in her Med[employer] pumping kit. Pt states she can get a pump from [facility]
--- NOTE | 2020-10-08 20:00 | PC.NURSE ---
1635 Baby has an appointment with Dr. Lopez on October 11 at 0900; Mother's f/u visit at the hospital is at 1100 that day.
[2020-10-11 11:21] VITALS: BP 134/87; PULSE 70; RESP 20; TEMP 37.1; O2SAT 100
--- NOTE | 2020-10-12 07:18 | PM.OBDSVD ---
DS: Admitting Diagnosis Admitting Diagnosis Admitting Diagnosis: OB - DS: Summary OB Procedures : None OB Procedures Intrapartum: Spontaneous Vag Delivery OB Procedures: : None Time Spent with Patient Time attestation: Total time spent providing and/or coordinating discharge services: DS: Data Data Completed and Pending Completed studies during hospitalization: Pending at discharge 10/06/20 18:28 Surgical [PTH] Routine Discharge Plan Discharge Consulting providers: Dong Hernandez Discharging Clinician: Vikram Blanco Patient Disposition: Home, Self-Care Activity: as tolerated Diet: as tolerated Discharge Instructions: Education: Mom and Baby Guide Given to: Mother Follow-Up: Call your delivering provider's office for an appointment to be seen in: 3 weeks Mom and baby should come to the [facility] for the follow-up appointment. Appointment Date/Time: October 11, 2020 at 11:00 am What to expect at your follow-up visit: Blood Pressure Check Physical Assessment Call [phone] if you are unable to keep your appointment time. BREAST CARE: * Wear a snug supportive bra. * For engorgement discomfort: Breast Feeding: * Apply warm moist washcloths * Express milk as needed to relieve engorgement * Wear loose clothing Bottle Feeding: * May apply ice packs * For sore nipples: * Identify correct latch-on * Apply warm moist washcloths before and after nursing * Air dry nipples after nursing * May apply Lansinoh cream to nipples EPISIOTOMY/PERINEAL CARE: * Until bleeding stops, use your shon bottle after urinating * Change your pad frequently throughout the day * You may take sitz baths several times a day (fill your bathtub with warm water and soak for 20 minutes.) Do NOT bathe in the water * No tub baths until seen by your physician - You may shower ACTIVITY: * Rest as much as possible. * Do not exercise or lift anything heavier than your baby (such as laundry or other children.) * Avoid stairs or driving as much as possible. * Do not put anything into the vagina. No douching, tampons, or sexual activity until seen by physician. NOTIFY PHYSICIAN IF YOU HAVE ANY QUESTIONS OR IF ANY OF THE FOLLOWING SYMPTOMS OCCUR: * If your perineum becomes red, swollen, or more painful than what you have experienced in the hospital. * If your vaginal bleeding becomes foul smelling. * If your vaginal bleeding becomes more heavy than a period or if your bleeding changes from pink to bright red. However, you may pass an occasional walnut-sized clot once or twice for the first week . * If you experience a sharp, shooting pain in you calves. * If you discover a hard, reddened area on your breast or if you experience flu-like symptoms. *Temperature of 100.4 or higher. DIET: * Eat regular, well-balanced meals. * Drink plenty of fluids daily. If , drink to thirst. Stand Alone Forms: General Discharge Information Follow-up/Referrals: Vikram Blanco MD [Physician] - 3 Weeks Discharge Medications: New ibuprofen 600 mg Tablet 600 mg PO Q6H PRN (Reason: Cramping) Qty: 30 RF: 0 Continued Classic 28 mg iron- 800 mcg Tablet 1 tablet PO DAILY RF: 0 pantoprazole [Protonix] 40 mg Tablet,Delayed Release (Dr/Ec) 40 mg PO QAM Qty: 60 RF: 0 Date of admission: 10/06/20 06:31 Primary Care Provider: PHYSICIAN,PLATE EMBOSSER Admitting Provider: Vikram Blanco Attending physician on admission: Vikram Blanco Condition: Stable
== END 2020-10-08 16:35 | disposition home or self-care (01) | DRG 560 ==
LOC: ANHLDR 06:35 → ANHOB2 20:40
PROVIDERS: Admitting Provider Obstetrics & Gynecology; Visit Provider Obstetrics & Gynecology
DX: O70.0 First degree perineal laceration during delivery (principal); Z3A.39 39 weeks gestation of pregnancy; Z37.0 Single live birth
CPT/HCPCS: 36415; 85014; 85018; 85025; 86592; 86703; 86762; 86850; 86900; 86901; 87340; 88307; A9270; G0432; J2590; J2795; J7120

== ENCOUNTER 2021-02-22 18:35 | Outpatient (CLI) | payer OTHER, SELFPAY ==
[2021-02-22 19:26] LABS: Beta HCG Quantitative < 2.39 mIU/ML
--- NOTE | 2021-02-22 19:35 | PC.NURSE ---
1839 - Dr Balnco paged [phone] - Dr Blanco returned page; orders for quantitative HCG lab to be drawn, then pt may be d/c home.
== END 2021-02-22 19:00 | disposition home or self-care (01) ==
LOC: ANHOBOP 18:42
PROVIDERS: Visit Provider Obstetrics & Gynecology
DX: Z01.812 Encounter for preprocedural laboratory examination (principal)
CPT/HCPCS: 36415; 84702

== ENCOUNTER 2021-12-19 16:21 | Emergency (ER) | payer OTHER, SELFPAY ==
[2021-12-19 16:37] VITALS: BP 105/61; PULSE 98; RESP 18; TEMP 37.2; O2SAT 100
== END 2021-12-19 16:30 | disposition left against medical advice (07) ==
LOC: ANHED 18:56
DX: N89.8 Other specified noninflammatory disorders of vagina (principal)
CPT/HCPCS: 99199

== ENCOUNTER 2021-12-20 15:54 | Emergency (ER) | payer OTHER, SELFPAY ==
[2021-12-20 16:12] VITALS: BP 115/53; PULSE 108; RESP 20; TEMP 36.8; O2SAT 100
--- NOTE | 2021-12-20 17:26 | ED.FEMALEGU ---
HPI - Female Genitourinary General Chief complaint: Urogenital-Female Stated complaint: vaginal check (STD check) Time Seen by Provider: 12/20/21 16:43 History of Present Illness HPI Narrative: 26-year-old female presented the emergency room for evaluation of an STD check. Patient states she is asymptomatic at this time. Was recently told by her that he was having an affair with another woman and there was concern that she might of been exposed to chlamydia. Denies any dysuria, abdominal pain, pelvic pain, vaginal discharge or fevers. Related Data Home Medications Medication Instructions Recorded Confirmed vits [id number] fum 1 tablet PO DAILY 08/26/20 08/26/20 28 mg iron-folic acid 800 mcg tablet (Classic ) Allergies Allergy/AdvReac Type Severity Reaction Status Date / Time No Known Allergies Allergy Unknown Verified 12/20/21 16:47 Review of Systems Review of Systems: CONSTITUTIONAL: Denies fever, chills, or sweats. EYES: Denies visual changes, redness, or discharge. ENT: Denies rhinorrhea, congestion, sore throat, or otalgia. CARDIOVASCULAR: Denies chest pain, palpitations, or edema. RESPIRATORY: Denies cough or dyspnea. GASTROINTESTINAL: Denies abdominal pain, nausea, vomiting, or diarrhea. GENITOURINARY: Denies dysuria or hematuria. SKIN: Denies rash or itching. MUSCULOSKELETAL: Denies back pain, joint pain, or myalgia. NEUROLOGIC: Denies headache, numbness, dizziness, or weakness. PSYCHIATRIC: Denies anxiety or depression. PMFSH Past Medical History Medical History Acute blood loss anemia Hematemesis Patient denies significant medical history Social History Social History Years smoked: 5 Smoking status: Former smoker Tobacco type: cigarettes Additional smoking assessment comments: socially Substance use: former Spiritual care concerns: No Exam Narrative: GENERAL: Well-appearing, well-nourished, no physical limitations, and in no acute distress. HEAD: Normocephalic, atraumatic. EYES: Conjunctivae normal, PERRLA and EOMI. CHEST: Clear to auscultation. No respiratory distress. No wheezes rales or rhonchi. No tenderness. HEART: Regular rate and rhythm. No murmur heard. Normal peripheral pulses. ABDOMEN: Soft, nontender, nondistended, normal active bowel sounds. : Normal external female exam. Scant amount of white discharge. Cervical os was closed and pink. No masses lesions ulcerations noted BACK: No CVA tenderness SKIN: Warm, dry, no rash. No noted wounds NEURO: No focal deficits. Alert and oriented x3. MAEW. CN's II-XI intact bilaterally, normal gait PSYCH: Cooperative. Normal mood and affect. Course Vital Signs Vital signs: Vital Signs Temperature 36.8 C 12/20/21 16:12 Pulse Rate 108 H 12/20/21 16:12 Respiratory Rate 20 12/20/21 16:12 Blood Pressure 115/53 L 12/20/21 16:12 Pulse Oximetry 100 12/20/21 16:12 Oxygen Delivery Room Air 12/20/21 16:12 Temperature 36.8 C 12/20/21 16:12 Pulse Rate 108 H 12/20/21 16:12 Respiratory Rate 20 12/20/21 16:12 Blood Pressure 115/53 L 12/20/21 16:12 Pulse Oximetry 100 12/20/21 16:12 Oxygen Delivery Room Air 12/20/21 16:12 MDM - Female Genitourinary Lab Data Labs: Lab Results 12/20/21 12/20/21 12/20/21 Range/Units 17:56 17:56 17:56 Urine Color Yellow (Yellow) Urine Appearance Slightly cloudy (Clear) Urine pH 6.0 (5.0-9.0) Ur Specific [place] >= 1.030 (1.001-1.035) Urine Protein Negative (Negative) mg/dL Urine Glucose (UA) Negative (Negative) mg/dL Urine Ketones Negative (Negative) mg/dL Ur Blood (Man) Trace-lysed (Negative) Urine Nitrate Negative (Negative) Urine Bilirubin Negative (Negative) Urine Urobilinogen 1.0 (<2.0) mg/dL Leukocyte Esterase Rfl Negative (Negative) GIO/UL
[2021-12-20 18:24] LABS: Appearance Urine Slightly Cloudy (Clear); Bilirubin Urine Negative (Negative); Blood Urine Trace-lysed (Negative); Color Urine Yellow (Yellow); Glucose Urine UA Negative (Negative); Ketones Urine Negative (Negative); Leukocyte Esterase Ur Negative LEU/UL (Negative); Nitrate Urine Negative (Negative); Protein Urine Negative (Negative); Specific Grav Ur >= 1.030 (1.001-1.035)
[2021-12-20 18:27] LABS: Mucus Urine Few /lpf; Squamous Epithelial Cell Urine Rare /hpf (Few); WBC Urine 0-3 /hpf
[2021-12-20 18:29] LABS: Add Urine Microscopic? YES
--- NOTE | 2021-12-20 18:33 | PC.NURSE ---
RN chaperoned pelvic exam with Kirill, SEQUINS STRINGER. No active lesions, herpes testing cancelled.
[2021-12-20] MEDS: metroNIDAZOLE 250 MG TABLET 2000 MG PO (18:37)
[2021-12-20] MEDS: cefTRIAXone 1 GM VIAL 0.5 GM IM (18:39)
[2021-12-20 19:34] LABS: HIV 1/2 Ab P24 Ag Result Negative (Negative)
[2021-12-21 09:08] LABS: Rapid Plasma Reagin Non-Reactive (NonReactive)
== END 2021-12-20 19:06 | disposition home or self-care (01) ==
PROVIDERS: Emergency Provider Nurse Practitioner Family
DX: Z20.2 Contact with and (suspected) exposure to infections with a predominantly sexual mode of transmission (principal); Z87.891 Personal history of nicotine dependence
CPT/HCPCS: 36415; 81001; 86592; 86703; 87070; 87491; 87591; 87808; 96372; 99284; A9270; G0432; J0696

== ENCOUNTER 2022-07-23 16:32 | Emergency (ER) | payer OTHER, SELFPAY ==
[2022-07-23 16:45] VITALS: BP 106/61; PULSE 85; RESP 16; TEMP 36.9; O2SAT 100
--- NOTE | 2022-07-23 19:16 | PC.NURSE ---
Report received from ILDA Mcnally. Assumed care of patient at this time.
--- NOTE | 2022-07-23 19:22 | ED.FEMALEGU ---
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 She states she has noticed some vaginal discharge for 2 days. Denies pelvic pain or any urinary symptoms. Denies vaginal bleeding. Denies abdominal pain, nausea, vomiting. She has had chlamydia in the past and was successfully treated. Today she notes a milky white discharge. Denies any further symptoms. She states she has only had 1 partner. Related Data Home Medications Medication Instructions Recorded Confirmed vits no.[id number]-ferrous fum 1 tablet PO DAILY 08/26/20 08/26/20 28 mg iron-folic acid 800 mcg tablet (Classic ) Allergies Allergy/AdvReac Type Severity Reaction Status Date / Time latex Allergy Rash Verified 07/23/22 18:32 Review of Systems Review of Systems: CONSTITUTIONAL: Denies fever, chills, or sweats. EYES: Denies visual changes, redness, or discharge. ENT: Denies rhinorrhea, congestion, sore throat, or otalgia. CARDIOVASCULAR: Denies chest pain, palpitations, or edema. RESPIRATORY: Denies cough or dyspnea. GASTROINTESTINAL: Denies abdominal pain, nausea, vomiting, or diarrhea. GENITOURINARY: Endorses slight vaginal discharge. Denies pelvic pain. Denies vaginal bleeding. Denies dysuria or hematuria. SKIN: Denies rash or itching. MUSCULOSKELETAL: Denies back pain, joint pain, or myalgia. NEUROLOGIC: Denies headache, numbness, dizziness, or weakness. PSYCHIATRIC: Denies anxiety or depression. PMFSH Past Medical History Medical History Acute blood loss anemia Hematemesis Patient denies significant medical history Social History Social History Years smoked: 5 Smoking status: Former smoker Tobacco type: cigarettes Additional smoking assessment comments: socially Substance use: former Spiritual care concerns: No Exam Narrative: GENERAL: Well-appearing, well-nourished, and in no acute distress. HEAD: Normocephalic, atraumatic. EYES: PERRLA and EOMI. ENT: Nares clear, no rhinorrhea or epistaxis. Mucous membranes moist. Oropharynx without tonsillar hypertrophy exudate or other lesions. NECK: Supple. No adenopathy or masses. CHEST: No respiratory distress. Clear to auscultation. No wheezes rales or rhonchi HEART: Regular rate and rhythm. No murmur heard. Normal peripheral pulses. ABDOMEN: Soft, nontender, nondistended, normal active bowel sounds. EXTREMITIES: Normal range of motion. No edema. SKIN: Warm, dry, no rash. NEURO: Alert and oriented x3. No focal deficits. PSYCH: Normal mood and affect. RN heater worker present for pelvic exam: There is moderate amount of white discharge along the vaginal rosales and at the cervical os. No blood Minimal tenderness No CMT. No masses or other lesions palpated on bimanual. Course Vital Signs Vital signs: Vital Signs Temperature 98.4 F 07/23/22 16:45 Pulse Rate 85 07/23/22 16:45 Respiratory Rate 16 07/23/22 16:45 Blood Pressure 106/61 07/23/22 16:45 Pulse Oximetry 100 07/23/22 16:45 Oxygen Delivery Room Air 07/23/22 16:45 Temperature 98.4 F 07/23/22 16:45 Pulse Rate 67 07/23/22 19:54 Respiratory Rate 16 07/23/22 19:54 Blood Pressure 105/70 07/23/22 19:54 Pulse Oximetry 97 07/23/22 19:54 Oxygen Delivery Room Air 07/23/22 16:45 MDM - Female Genitourinary MDM Narrative Medical decision making narrative: This is a 27-year-old female is presenting for vaginal discharge. She is concerned for potential STD. She does not have a known positive contact. Pelvic exam with RN heater worker present and does show moderate amount of discharge. Swabs were sent. Patient's vitals are stable. She is afebrile. There is no cervical
[2022-07-23] MEDS: cefTRIAXone 1 GM VIAL 0.5 GM IM (19:38)
[2022-07-23] MEDS: ONDANSETRON HCL ODT 4 MG TABLET PO (19:38)
[2022-07-23 19:39] LABS: Appearance Urine Turbid (Clear); Bacteria Urine None Seen /hpf; Bilirubin Urine Negative (Negative); Blood Urine 2+ (Negative); Color Urine Yellow (Yellow); Glucose Urine UA Negative (Negative); Ketones Urine Negative (Negative); Leukocyte Esterase Ur 1+ LEU/UL (Negative); Need Manual Microscopic Reviewed; Nitrate Urine Negative (Negative); Protein Urine Trace mg/dL (Negative); Specific Grav Ur 1.031 (1.001-1.035); Squamous Epithelial Cell Urine Few /hpf (Few); Urobilinogen Urine 0.2 mg/dL (<2.0); WBC Urine 0-5 /hpf; pH Urine 5.5 (5.0-9.0)
[2022-07-23] MEDS: metroNIDAZOLE 250 MG TABLET 2000 MG PO (19:39)
[2022-07-23 19:50] LABS: Add Urine Microscopic? YES
[2022-07-23 19:54] VITALS: BP 105/70; PULSE 67; RESP 16; O2SAT 97
== END 2022-07-23 20:10 | disposition home or self-care (01) ==
PROVIDERS: Emergency Provider Physician Assistant
DX: N89.8 Other specified noninflammatory disorders of vagina (principal); Z11.3 Encounter for screening for infections with a predominantly sexual mode of transmission
CPT/HCPCS: 81001; 81025; 87070; 87147; 87491; 87591; 87808; 96372; 99284; A9270; J0696

== ENCOUNTER 2023-10-25 18:59 | Emergency (ER) | payer OTHER, SELFPAY ==
[2023-10-25 19:06] VITALS: BP 120/64; PULSE 94; RESP 16; TEMP 36.6; O2SAT 98
--- NOTE | 2023-10-25 21:12 | PC.NURSE ---
2nd call no answer
== END 2023-10-25 21:23 | disposition left against medical advice (07) ==
LOC: ANHED 21:16
DX: L98.9 Disorder of the skin and subcutaneous tissue, unspecified (principal)
CPT/HCPCS: 99199

== ENCOUNTER 2023-12-23 12:30 | Emergency (ER) | payer OTHER, SELFPAY ==
[2023-12-23 12:43] VITALS: BP 103/62; PULSE 126; RESP 20; TEMP 37.7; O2SAT 96
[2023-12-23 13:10] VITALS: RESP 19; O2SAT 100
[2023-12-23 13:22] LABS: Strep Group A RT-PCR NOT DETECTED (Negative)
--- NOTE | 2023-12-23 14:32 | ED.GENADULT ---
HPI - General Adult General Chief complaint: Unspecified Stated complaint: blister on vagina and tonsils Time Seen by Provider: 12/23/23 13:57 Source: patient Mode of arrival: ambulatory Limitations: no limitations History of Present Illness HPI narrative: This is a 28-year-old female that presents to the emergency department for sore throat. Reports she has had fevers, myalgias the last week. Reports she believes she had a vaginal lesion. Is unsure if it is still present. Today she woke up with a sore throat. She was recently treated for gonorrhea by her PCP. Denies dysuria. Related Data Allergies Allergy/AdvReac Type Severity Reaction Status Date / Time latex Allergy Rash Verified 12/23/23 12:48 Review of Systems Review of Systems: CONSTITUTIONAL: Reports fever, chills ENT: Reports sore throat GENITOURINARY: Denies dysuria SKIN: Reports rash All systems reviewed & are unremarkable except as noted in HPI and below PMFSH Past Medical History Medical History (Updated 12/23/23 @ 17:59 by Bebe Medrano PA-C) Acute blood loss anemia Gonorrhea Hematemesis Social History Social History Years smoked: 5 Smoking status: Former smoker Tobacco type: cigarettes Additional smoking assessment comments: socially Substance use: former Spiritual care concerns: No Exam Narrative: GENERAL: Well-appearing, well-nourished, and in no acute distress. HEAD: Normocephalic, atraumatic. EYES: EOMI. ENT: Mucous membranes moist. Oropharynx with erythema, tonsillar hypertrophy and exudate. No other lesions. NECK: Supple. Tender anterior cervical adenopathy CHEST: No respiratory distress. HEART: Regular rate EXTREMITIES: Normal range of motion. No edema. SKIN: Warm, dry, no rash. NEURO: No focal deficits. Alert and oriented x3. PSYCH: Normal mood and affect PELVIC: Normal external genitalia. No rashes or lesions noted. Mild amount of off white discharge in the vaginal vault. No CMT Course Course Emergency Course: patient updated on workup and agrees with plan of care Vital Signs Vital signs: Vital Signs Temperature 99.9 F H 12/23/23 12:43 Pulse Rate 126 H 12/23/23 12:43 Respiratory Rate 20 12/23/23 12:43 Blood Pressure 103/62 08/18/24 12:43 Pulse Oximetry 96 12/23/23 12:43 Oxygen Delivery Room Air 12/23/23 12:43 Temperature 99.9 F H 12/23/23 12:43 Pulse Rate 126 H 12/23/23 12:43 Respiratory Rate 19 12/23/23 13:10 Blood Pressure 103/62 12/23/23 12:43 Pulse Oximetry 100 12/23/23 13:10 Oxygen Delivery Room Air 12/23/23 12:43 Medical Decision Making MDM Narrative Medical decision making narrative: patient presents to the emergency department for fevers, myalgias, sore throat. Recent vaginal lesion. Treated by her PCP for a positive gonorrhea test. She also tested positive for BV. It does not appear she was treated for this. She I think was supposed to be treated with Valtrex for herpes, but did not pick up operator the medication. Borderline febrile and tachycardic upon arrival, this normalized with dose of Tylenol. No vaginal lesions noted presently. She does have erythema and exudates noted in the posterior oropharynx. Strep negative. HSV culture was sent. Patient will be presumptively treated for herpes. HIV and RPR are negative. Urine with 11-20 red blood cells, no white blood cells. Trichomonas, gonorrhea and chlamydia are negative today. Patient will be treated for BV with metronidazole as well as Valtrex for herpes. Instructed to follow-up with her PCP for further results. She was given warnings to return to the ER Medical Records Medical records reviewed: Yes I reviewed the external patient's medical records. Vital Signs Vital Signs: Vital Signs Temperature 99.9 F H 12/23/23 12:43 Pulse Rate 126 H 12/23/23 12:43 Respiratory Rate 20 12/23/23 12:43 Blood Pressure 103/62 12/23/23
[2023-12-23 14:57] LABS: BEDSIDEPREGUCG Negative
[2023-12-23] MEDS: ACETAMINOPHEN 500 MG TABLET 1000 MG PO (15:01)
[2023-12-23 15:21] LABS: Add Urine Microscopic? YES; Appearance Urine Cloudy (Clear); Bacteria Urine 1+ /hpf; Bilirubin Urine Negative (Negative); Blood Urine 2+ (Negative); Color Urine Yellow (Yellow); Glucose Urine UA Negative (Negative); Ketones Urine Trace mg/dL (Negative); Leukocyte Esterase Ur 1+ LEU/UL (Negative); Need Manual Microscopic Reviewed; Nitrate Urine Negative (Negative); Non Pathogenic Casts 0-2; Protein Urine 1+ mg/dL (Negative); Specific Grav Ur 1.008 (1.001-1.035); Squamous Epithelial Cell Urine Moderate /hpf (Few); WBC Urine 0-5 /hpf (0-3)
[2023-12-23 15:40] LABS: Rapid Plasma Reagin Non-Reactive (NonReactive)
[2023-12-23 15:51] LABS: HIV 1/2 Ab P24 Ag Result Negative (Negative)
[2023-12-23 16:00] VITALS: BP 132/76; PULSE 97; RESP 18; O2SAT 100
[2023-12-23 16:53] LABS: Trichomonas Vag PCR NOT DETECTED (NOT DETECTE)
[2023-12-23 17:18] LABS: Chlamydia trachomatis NOT DETECTED (NOT DETECTE); Neisseria gonorrhoeae PCR NOT DETECTED (NOT DETECTE)
[2023-12-23 18:10] VITALS: BP 129/76; PULSE 86; RESP 17; TEMP 36.6; O2SAT 100
[2023-12-27 05:13] LABS: Source OROPHARYNGEAL
== END 2023-12-23 18:11 | disposition home or self-care (01) ==
PROVIDERS: Emergency Medicine; Emergency Provider Physician Assistant; PCP Family Medicine
DX: B00.2 Herpesviral gingivostomatitis and pharyngotonsillitis (principal); N76.0 Acute vaginitis; Z87.891 Personal history of nicotine dependence
CPT/HCPCS: 36415; 81001; 81025; 86592; 86695; 86696; 86703; 87070; 87255; 87491; 87591; 87651; 87661; 99284; A9270; G0432

== ENCOUNTER 2025-01-20 13:45 | Emergency (ER) | payer OTHER, SELFPAY ==
--- NOTE | ~2025-01-20 | XR_ITS ---
[id number] Indication: intermittent pain from shoulder down LUE Comparison: None Findings: The vertebral heights are intact. No fracture or subluxation. The disc heights are intact. Soft tissues unremarkable Impression: No acute abnormality. Reviewed, dictated and finalized at location A. Impression: No acute abnormality.
--- NOTE | ~2025-01-20 | XR_ITS ---
EXAM/ PROCEDURE: XR shoulder LT min 2V - 01/20/2025 16:10 CDT HISTORY: 29 years old Female with intermittent pain from shoulder down LUE COMPARISON: None available TECHNIQUE: Four view(s) FINDINGS/ IMPRESSION: There are no fractures or dislocations.Joint spaces are within normal limits. Reviewed, dictated and finalized at location N.
[2025-01-20 13:54] VITALS: BP 122/68; PULSE 82; RESP 16; TEMP 36.7; O2SAT 100
--- NOTE | 2025-01-20 15:01 | PC.NURSE ---
patient provided a urine sample cup at this time
--- OUTSIDE RECORDS SUMMARY | 2025-01-20 15:26 | XMS_ITS | Clinical Summary ---
Author Organization [facility] Address [address] [place] [address] Care Team Providers Care Squadron Worker Name Role Phone Nora Trevizo MD Primary Care Provider [phone] Source Comments [facility],non-owned Affiliates and Associated Physician Practices is amultiple site organization consisting of ambulatory clinics and hospital sitesin [place], [place], [place] and [place]. This disclosure is being madepursuant to the Care Everywhere program and may not contain all information available regarding this patient. Last updated 18.[facility] Allergies No known active allergies Medications * Be aware that medications may not be up to date on this document. Alwaysverify current medications with the patient. ibuprofen (MOTRIN) 600 MG tablet Take 1 Tab by mouth every 6 hours as needed for Pain. 30 Tab 2 01/18/2013 Active Active Problems Problem Noted Date Diagnosed Date Migraine with aura 05/26/2013 Overview (02/04/2015): Usually frontal on left side with an aura of purples arriaza for about 5 seconds before headache occurs. Sometime, vison blacks out before headache. Headaches usually last 1 hour and improve with sleep alone. MRI-February 2013-Normal brain MRI and Normal head and neck MRA. Specifically, no MRA evidence of dissection, aneurysm, or other vascular malformation is identified EEG-February 2013-Normal Assessment & Plan (05/27/2013 2:36 PM RETRIEVAL SPECIALIST): Headaches respond well to rest/sleep alone. Sylvia struggles with sleep at times. We would recommend more structure to sleep patterns such as consistent bedtime and wake up times. Also discussed that she could use an OTC such as Tylenol for headache pain if desired. We briefly discussed over-use headaches. We will follow up as needed but the she should call for any questions, concerns or if headache frequency worsens or if pain does not improve with OTC when taken. Social History Tobacco Use Types Packs/Day Years Used Date Smoking Tobacco: Never Alcohol Use Standard Drinks/Week Comments Not Asked 0 (1 standard drink = 0.6 oz pur e alcohol) Comments No Sex and Gender Information Value Date Recorded Sex Assigned at Not on file Legal Sex Female 5:46 AM RETRIEVAL SPECIALIST Gender Identity Not on file Sexual Orientation Not on file Last Filed Vital Signs Vital Sign Reading Time Taken Comments Blood Pressure 102/64 05/26/2013 2:49 PM RETRIEVAL SPECIALIST Pulse 96 03/05/2013 9:34 PM CDT Temperature 37 C (98.6 F) 03/05/2013 6:55 PM CDT Respiratory Rate 18 03/05/2013 9:34 PM CDT Oxygen Saturation 99% 03/05/2013 9:34 PM CDT Inhaled Oxygen Concentration - - Weight 55.6 kg (122 lb 9.6 oz) 05/26/2013 2:49 P M RETRIEVAL SPECIALIST Height 168.8 cm (5' 6.46) 05/26/2013 2:49 PM CS T Body Mass Index 19.52 05/26/2013 2:49 PM RETRIEVAL SPECIALIST Plan of Treatment Health Maintenance Due Date Last Done Comments HIV SCREENING 07/23/2011 HEPATITIS C SCREENING 07/18/2014 DTAP/TDAP/TD VACCINES (1 - Tdap) 07/23/2015 HEPATITIS B VACCINE (1 of 3 - 19+ 3-dose series) 07/23/2015 HPV VACCINE (1 - 3-dose SCDM series) 07/23/2023 DEPRESSION SCREENING 05/07/2024 COVID-19 VACCINE (1 - 2023-2 5 season) 2025 INFLUENZA VACCINE (#1) 2025 ZOSTER VACCINE (1 of 2) 2046 HIB VACCINE Aged Out No longer eligi ble based on patient's age to complete this topic MENINGOCOCCAL (Group B) VACC INE SHARED DECISION-MAKING Aged Out No longer eligibl e based on patient's age to complete this topic MENINGOCOCCAL GROUPS A/C/Y/W VACCINE Aged Out No longer eligible b ased on patient's age to complete this topic PNEUMOCOCCAL VACCINE Aged Out No long er eligible based on patient's age to complete this topic [place] [address] [place] [address] MEDICAID - [place] Care Teams Squadron Worker Relationship Specialty Start Date End Date Nora Trevizo MD PCP - General Pediatrics 01/09/13
[2025-01-20 15:50] LABS: BEDSIDEPREGUCG Negative (Negative)
[2025-01-20 16:05] LABS: Add Urine Microscopic? YES; Appearance Urine Cloudy (Clear); Glucose Urine UA Negative (Negative); Leukocyte Esterase Ur 1+ LEU/UL (Negative); Need Manual Microscopic Reviewed; Nitrate Urine Negative (Negative); Non Pathogenic Casts 0-2; Specific Grav Ur 1.026 (1.001-1.035)
--- OUTSIDE RECORDS SUMMARY | 2025-01-20 16:51 | XMS_ITS | Clinical Summary ---
Author Organization [facility] [employer] Address [address] [place] [address] Care Team Providers Care Senior Manager Mmcoe Name Role Phone Nora Trevizo MD Primary Care Provider [phone] Source Comments [facility] [employer],non-owned Affiliates and Associated Physician Practices is amultiple site organization consisting of ambulatory clinics and hospital sitesin [place], [place], [place] and [place]. This disclosure is being madepursuant to the Care Everywhere program and may not contain all information available regarding this patient. Last updated 18.[facility] Allergies No known active allergies Medications * [...] 2013-Normal Assessment & Plan (05/27/2013 2:36 PM MICROBIOLOGY TECHNICIAN): Headaches respond well to rest/sleep alone. Sylvia [...] on file Legal Sex Female 5:46 AM MICROBIOLOGY TECHNICIAN Gender Identity Not on file Sexual Orientation Not on file Last Filed Vital Signs Vital Sign Reading Time Taken Comments Blood Pressure 102/64 05/26/2013 2:49 PM MICROBIOLOGY TECHNICIAN Pulse 96 03/05/2013 9:34 PM CDT Temperature 37 C (98.6 F) 03/05/2013 6:55 PM CDT Respiratory Rate 18 03/05/2013 9:34 PM CDT Oxygen Saturation 99% 03/05/2013 9:34 PM CDT Inhaled Oxygen Concentration - - Weight 55.6 kg (122 lb 9.6 oz) 05/26/2013 2:49 P M MICROBIOLOGY TECHNICIAN Height 168.8 cm (5' 6.46) 05/26/2013 2:49 PM CS T Body Mass Index 19.52 05/26/2013 2:49 PM MICROBIOLOGY TECHNICIAN Plan of Treatment Health Maintenance Due Date [...] patient's age to complete this topic Insurance [address] [place] [address] MEDICAID - [place] Care Teams Senior Manager Mmcoe Relationship Specialty Start Date End Date Nora Trevizo MD PCP - General Pediatrics 01/09/13
--- NOTE | 2025-01-20 17:33 | ED.GENADULT ---
HPI - General Adult General Chief complaint: Extremity Injury, Upper Stated complaint: left arm pain Time Seen by Provider: 01/20/25 15:39 Source: patient Mode of arrival: ambulatory Limitations: no limitations History of Present Illness HPI narrative: Patient is a 29 y/o female who presents to the ED with c/o left upper extremity pain and urinary complaints. Patient reports over the past several weeks to months, she has been having intermittent pain throughout her left shoulder, radiating into her left arm. States pain is random, denies significant aggravating or alleviating factors. Occasionally does radiate up to her neck. Denies paresthesias. Denies current pain. Also reports waking up this morning with concern for urinary tract infection with dysuria, frequency. She notes she is scheduled to start her menstrual cycle soon. Related Data Home Medications ?Medication ?Instructions ?Recorded ?Confirmed ?Last Taken ?Type levonorgestrel (Mirena) 1 device intrauterine ONCE 06/19/24 06/19/24 Unknown History Allergies Allergy/AdvReac Type Severity Reaction Status Date / Time latex Allergy Rash Verified 06/19/24 10:23 Review of Systems Review of Systems: All systems reviewed & are unremarkable except as noted in HPI. All systems reviewed & are unremarkable except as noted in HPI and below PMFSH Past Medical History Medical History Gonorrhea Acute blood loss anemia Hematemesis Social History Social History Years smoked: 5 Smoking status: Former smoker Tobacco type: cigarettes Additional smoking assessment comments: socially Substance use: former Spiritual care concerns: No Exam Narrative: GENERAL: Well appearing, thin, non-toxic, in no acute distress. HEAD: Normocephalic, atraumatic. RESPIRATORY: Airway patent, respirations nonlabored. CARDIOVASCULAR: Regular rate and rhythm without murmurs, rubs, or gallops. Radial pulses strong and easily palpable. MUSCULOSKELETAL: Moves all extremities. No gross deformities. Full range of motion of left upper extremity. No appreciable tenderness throughout left upper extremity. Sensation intact. No swelling throughout left upper extremity. SKIN: Warm, dry, normal color. NEURO: A&O X3. Speech clear. No ataxic movements. PSYCHIATRIC: Appropriate mood and affect. Normal interaction. Course Vital Signs Vital signs: Vital Signs Temperature 98.1 F 01/20/25 13:54 Pulse Rate 82 01/20/25 13:54 Respiratory Rate 16 01/20/25 13:54 Blood Pressure 122/68 01/20/25 13:54 Pulse Oximetry 100 01/20/25 13:54 Oxygen Delivery Room Air 01/20/25 13:54 Temperature 98.1 F 01/20/25 13:54 Pulse Rate 76 01/20/25 17:55 Respiratory Rate 16 01/20/25 17:55 Blood Pressure 122/81 01/20/25 17:55 Pulse Oximetry 97 01/20/25 17:55 Oxygen Delivery Room Air 01/20/25 13:54 Medical Decision Making MDM Narrative Medical decision making narrative: Patient?s injury is consistent with musculoskeletal etiology. No signs of neurologic or vascular compromise on physical examination. Compartments are soft without signs of compartment syndrome. XR of left shoulder and cervical spine without acute abnormalities. Discussed possibility of pinched nerves, cervical radiculopathy, musculoskeletal pain. Patient denies current pain. Will refer to orthopedics for further evaluation as needed. Patient also voiced concern for urinary tract infection. UA here with 21-50 RBC, 6-10 WBC. 1+ urine bacteria. Sent for culture. Urine is negative. Given patient's acute symptoms, will treat for infection. Started on Keflex. Advised to follow-up with PCP for urine culture results. Patient given return precautions. Discharged in stable condition. Medical Records Medical records reviewed: Yes I reviewed the external patient's medical records. Vital Signs Vital Signs: Vital Signs Temperature 98.1 F 01/20/25 13:54 Pulse Rate 82 01/20/25 13:54 Respiratory Rate 16 01/20/25 13:54 Blood Pressure 122/68 01/20/25 13:54 Pulse Oximetry 100 01/20/25 13:54 Oxygen Delivery Room Air 01/20/25 13:54 Temperature 98.1 F 01/20/25 13:54 Pulse Rate 76 01/20/25 17:55 Respiratory Rate 16 01/20/25 17:55 Blood Pressure 122/81 01/20/25 17:55 Pulse Oximetry 97 01/20/25 17:55 Oxygen Delivery Room Air 01/20/25 13:54 Lab Data Lab results reviewed: Yes I reviewed the patient's lab results. Labs: Lab Results 01/20/25 01/20/25 Range/Units 15:44 15:49 Urine Color Yellow (Yellow) Urine Appearance Cloudy H (Clear) Urine pH 7.5 (5.0-9.0) Ur Specific [place] 1.026 (1.001-1.035) Urine Protein Trace (Negative) mg/dL Urine Glucose (UA) Negative (Negative) mg/dL Urine Ketones Trace H (Negative) mg/dL Ur Blood (Man) Negative (Negative) Urine Nitrate Negative (Negative) Urine Bilirubin Negative (Negative) Urine Urobilinogen 1.0 (<2.0) mg/dL Add Ur Microanalysis Reviewed Leukocyte Esterase Rfl 1+ H (Negative) GIO/UL Urine RBC 21-50 H (0-2) /hpf Urine WBC 6-10 H (0-3) /hpf Ur Squamous Epith Cells Moderate (Few) /hpf Urine Bacteria 1+ H /hpf Urine Casts 0-2 POC Urine HCG, Qual Negative (Negative) Imaging Data Attestation: I personally reviewed and interpreted this imaging study as follows: Radiologist's impression: ITS Impressions Cervical Spine X-Ray 01/20/25 16:33 Impression: No acute abnormality. Discharge Plan Discharge Clinical Impression: Pain of left upper extremity UTI (urinary tract infection) Qualifiers: Urinary tract infection type: acute cystitis Hematuria presence: with hematuria Qualified Code(s): N30.01 - Acute cystitis with hematuria Patient Disposition: Home Condition: Stable Instructions: Antibiotic Form, Urinary Tract Infection in Women (ED), Cervical Radiculopathy (ED), Arm Pain (ED) Additional Instructions: Take antibiotics as prescribed for urinary tract infection. Stay well hydrated. Recommend Tylenol/ibuprofen as needed for left arm pain. Follow-up with orthopedics for further evaluation if needed. Otherwise recommend follow-up with primary care doctor for urine culture results. Return to the ED if you experience worsening or severe pain, numbness, unable to keep down food or drink, persistent fevers, or any other symptoms of concern. Patient Language: Dutch Prescriptions: New cephalexin 500 mg capsule 500 mg PO Q6H 7 Days Qty: 28 0RF No Action Mirena 21 mcg/24hr (up to 8 yrs) 52 mg intrauterine device 1 device intrauterine ONCE Rx Instructions: as a single dose valacyclovir 500 mg tablet 1,000 mg PO Q12H Qty: 20 0RF Follow-up/Referrals: Jaylan Osorio MD [Physician, Orthopedics] Referral Note: ORTHOPEDICS Jia Mock MD [Primary Care Provider, [facility]] Time of Disposition: 17:36
[2025-01-20 17:55] VITALS: BP 122/81; PULSE 76; RESP 16; O2SAT 97
== END 2025-01-20 17:55 | disposition home or self-care (01) ==
PROVIDERS: Emergency Provider Physician Assistant; PCP Family Medicine
DX: N30.01 Acute cystitis with hematuria (principal); M79.602 Pain in left arm; M25.512 Pain in left shoulder; Z87.891 Personal history of nicotine dependence
CPT/HCPCS: 72040; 73030; 81001; 81025; 87086; 99284